=== PATIENT | female | born 1970 | race Two or more races ===

== ENCOUNTER 2023-01-21 11:13 | Inpatient (IN) | payer MEDICAID ==
[~2023-01-21] VITALS: Ht 172.7 cm; Wt 130.2 kg
[2023-01-21 12:05] LABS: Basophils # (auto) 0 10 ^3/uL (0-0.2); Basophils % (auto) 0.7 % (0.0-2.0); Eosinophils # (auto) 0.1 10 ^3/uL (0-0.8); Eosinophils % (auto) 1.9 % (0.0-7.0); Hematocrit 42.1 % (36.0-46.0); Hemoglobin 14.1 g/dL (12.2-16.2); Lymphocytes # (auto) 1.3 10 ^3/uL (0.4-5.4); Lymphocytes % (auto) 23.6 % (10.0-50.0); Mean Corpuscular Hemoglobin 28.8 pg (28.0-32.0); Mean Corpuscular Hgb Conc. 33.4 g/dL (32.0-36.0); Mean Corpuscular Volume 86.2 fL (80.0-100.0); Monocytes # (auto) 0.4 10 ^3/uL (0-1.3); Monocytes % (auto) 8.1 % (0.0-12.0); Neutrophils # (auto) 3.6 10 ^3/uL (1.6-8.6); Neutrophils % (auto) 65.7 % (37.0-80.0); Nucleated Red Blood Cells % 0.1 %; Red Blood Cells 4.89 10^6/uL (4.0-5.20); Red Cell Distribution Width 13.6 % (11.8-14.3); White Blood Cell 5.5 10^3/uL (4.4-10.8)
[2023-01-21 12:28] LABS: Albumin 3.5 g/dL (3.4-5.0); Calcium 8.9 mg/dL (8.5-10.1); Potassium 3.7 mmol/L (3.5-5.1)
[2023-01-21 12:31] LABS: BUN/Creatinine Ratio 14.5 (10.0-20.0); Bilirubin, Total 1.1 mg/dL (0.2-1.0); Total Protein 8.5 g/dL (6.4-8.2)
[2023-01-21] MEDS ORDERED: PIPERACILLIN-TAZOB 3.375GM 100 ML IV ONE (13:00)
[2023-01-21] MEDS ORDERED: VANCOMYCIN 1GM/250ML 250 ML IV ONE (13:00)
[2023-01-21] MEDS ORDERED: ACETAMINOPHEN 325 MG TAB PO PRN (14:00)
[2023-01-21] MEDS ORDERED: VANCOMYCIN PER PHARMACY 0 MG IV SCH (14:00)
[2023-01-21] MEDS ORDERED: LISI20TA56 PO (14:10)
[2023-01-21] MEDS ORDERED: DEXTROSE (50%) 50ML SYRG IV PRN (14:15)
[2023-01-21 15:01] LABS: Urine Bacteria NONE SEEN /hpf (None Seen); Urine Blood 1+ /uL (Negative); Urine Mucus FEW (None Seen); Urine Specific Gravity 1.023 (1.001-1.035); Urine WBC 1 /hpf (0 - 5)
[2023-01-21 15:13] LABS: Cholesterol 169 mg/dL (< 200); HDL Cholesterol 33 mg/dL (40-59); LDL Cholesterol 123 mg/dL (< 100); Triglycerides 124 mg/dL (< 150)
[2023-01-21 15:14] LABS: INR 1.06 (0.9-1.15); Partial Thromboplastin Time 30.2 SEC (24.5-34.5)
[2023-01-21] MEDS: LACTATED RINGER'S 1,000 ML IV SCH (17:31)
[2023-01-21] MEDS: ACCU-CHEK COMFORT CURVE STRIP VI SCH (18:00)
[2023-01-21] MEDS: InsuLIN REG 1unit/0.01ml Soln (100units/ml) SC SCH (18:00)
[2023-01-21] MEDS: AZTREONAM 1GM INJ 1 GM in D5W 5% 50 ML IV SCH ×2 (20:27→20:28)
[2023-01-21 21:24] VITALS: BP 126/76
[2023-01-21] MEDS ORDERED: MONT5CHW12 PO ×2 (22:52)
[2023-01-21] MEDS ORDERED: METF-370 PO (22:52)
[2023-01-21] MEDS ORDERED: HYDR-4902 PO (22:52)
[2023-01-22] MEDS: ACCU-CHEK COMFORT CURVE STRIP VI SCH ×4 (00:13→18:25)
[2023-01-22] MEDS: VANCOMYCIN 1GM/250ML 250 ML IV SCH ×3 (00:13→20:01)
[2023-01-22] MEDS: LACTATED RINGER'S 1,000 ML IV SCH ×2 (03:20→15:46)
[2023-01-22 04:30] VITALS: BP 107/61
[2023-01-22 05:55] LABS: Basophils # (auto) 0 10 ^3/uL (0-0.2); Basophils % (auto) 0.6 % (0.0-2.0); Eosinophils # (auto) 0.2 10 ^3/uL (0-0.8); Eosinophils % (auto) 4.2 % (0.0-7.0); Hematocrit 39.4 % (36.0-46.0); Hemoglobin 13.3 g/dL (12.2-16.2); Lymphocytes # (auto) 1.3 10 ^3/uL (0.4-5.4); Lymphocytes % (auto) 29.8 % (10.0-50.0); Mean Corpuscular Hemoglobin 29.1 pg (28.0-32.0); Mean Corpuscular Hgb Conc. 33.6 g/dL (32.0-36.0); Mean Corpuscular Volume 86.6 fL (80.0-100.0); Monocytes # (auto) 0.4 10 ^3/uL (0-1.3); Monocytes % (auto) 9.5 % (0.0-12.0); Neutrophils # (auto) 2.4 10 ^3/uL (1.6-8.6); Neutrophils % (auto) 55.9 % (37.0-80.0); Red Blood Cells 4.56 10^6/uL (4.0-5.20); Red Cell Distribution Width 13.7 % (11.8-14.3); White Blood Cell 4.4 10^3/uL (4.4-10.8)
[2023-01-22] MEDS: AZTREONAM 1GM INJ 1 GM in D5W 5% 50 ML IV SCH (06:00)
[2023-01-22] MEDS: InsuLIN REG 1unit/0.01ml Soln (100units/ml) SC SCH ×4 (06:00→18:00)
[2023-01-22 06:15] LABS: Calcium 8.6 mg/dL (8.5-10.1); Potassium 3.7 mmol/L (3.5-5.1)
[2023-01-22 06:17] LABS: BUN/Creatinine Ratio 16.2 (10.0-20.0)
[2023-01-22] MEDS ORDERED: HYDROmorphone HCL 2 MG/ML VL/or syr IV PRN ×2 (07:15)
[2023-01-22] MEDS ORDERED: METOCLOPRAMIDE HCL 5MG/ml INJ 2ml VIAL IV PRN (07:15)
[2023-01-22] MEDS ORDERED: ACCU-CHEK COMFORT CURVE STRIP VI ONE (07:15)
[2023-01-22] MEDS ORDERED: ROCURONIUM 10MG/ML 10ML VIAL IV ONE (07:16)
[2023-01-22] MEDS ORDERED: SUCCINYLCHOLINE CHLORIDE 20 MG/ML 10ML VIAL IV ONE (07:16)
[2023-01-22] MEDS ORDERED: GLYCOPYRROLATE 0.2 MG/ML 1ML VIAL ONE (07:19)
[2023-01-22] MEDS ORDERED: fentaNYL CITRATE 100 MCG/2 ML VL ONE (07:19)
[2023-01-22] MEDS ORDERED: PROPOFOL 10 MG/ML 20 ML IV ONE (07:19)
[2023-01-22] MEDS ORDERED: ONDANSETRON HCL 4 MG/2 ML VIAL ONE (07:19)
[2023-01-22] MEDS ORDERED: LIDOCAINE 2% JELLY 11ml (GLYDO) ONE (07:19)
[2023-01-22] MEDS ORDERED: KETAMINE HCL 10 ML ONE (07:19)
[2023-01-22] MEDS ORDERED: SODIUM CHLORIDE LOCK 10 ML ONE (07:19)
[2023-01-22] MEDS ORDERED: MIDAZOLAM HCL 2MG/2ML 2ml VIAL (1mg/ml) ONE (07:19)
[2023-01-22] MEDS ORDERED: NEOSTIGMINE 1 MG/ML INJ (10mg/10ML VIAL) ONE (07:19)
[2023-01-22] MEDS ORDERED: LIDOCAINE W/ EPINEPHRINE 1% 20ML VIAL ONE (07:20)
[2023-01-22] MEDS ORDERED: BUPIVACAINE 0.25% INJ 50ML VIAL ONE (07:20)
[2023-01-22] MEDS ORDERED: ETOMIDATE (2MG/ML) 20ML VIAL IV ONE (07:23)
[2023-01-22] MEDS: HYDROcodone-ACET 5/325MG TAB PO PRN ×2 (09:06→18:28)
[2023-01-22] MEDS: LISINOPRIL 20 MG TAB PO SCH (10:00)
[2023-01-22] MEDS: MORPHINE SULFATE INJ 2 MG/ml SYRG IV PRN ×2 (11:02→20:40)
[2023-01-22 12:00] VITALS: BP 117/69
[2023-01-22] MEDS: PIPERACILLIN-TAZOB 3.375GM 100 ML IV SCH ×2 (15:45→22:02)
[2023-01-22 16:00] VITALS: BP 108/62
[2023-01-22 22:00] VITALS: BP 113/62
[2023-01-23] MEDS: ACCU-CHEK COMFORT CURVE STRIP VI SCH ×5 (00:10→23:07)
[2023-01-23 05:00] VITALS: BP 113/63
[2023-01-23] MEDS: VANCOMYCIN 1GM/250ML 250 ML IV SCH ×2 (05:50→16:26)
[2023-01-23] MEDS: InsuLIN REG 1unit/0.01ml Soln (100units/ml) SC SCH ×5 (06:00→23:06)
[2023-01-23] MEDS: PIPERACILLIN-TAZOB 3.375GM 100 ML IV SCH ×3 (06:16→21:39)
[2023-01-23] MEDS: LACTATED RINGER'S 1,000 ML IV SCH ×2 (06:17→19:20)
[2023-01-23] MEDS: HYDROcodone-ACET 5/325MG TAB PO PRN (08:35)
[2023-01-23 09:00] VITALS: BP 131/77
[2023-01-23] MEDS: LISINOPRIL 20 MG TAB PO SCH (09:54)
[2023-01-23] MEDS: MORPHINE SULFATE INJ 2 MG/ml SYRG IV PRN (13:51)
[2023-01-23 17:00] VITALS: BP 127/74
[2023-01-23 22:00] VITALS: BP 117/65
[2023-01-24] MEDS: VANCOMYCIN 1GM/250ML 250 ML IV SCH ×2 (01:53→12:54)
[2023-01-24 05:00] VITALS: BP 120/51
[2023-01-24] MEDS: InsuLIN REG 1unit/0.01ml Soln (100units/ml) SC SCH ×3 (05:45→17:51)
[2023-01-24] MEDS: PIPERACILLIN-TAZOB 3.375GM 100 ML IV SCH ×2 (05:45→13:57)
[2023-01-24] MEDS: ACCU-CHEK COMFORT CURVE STRIP VI SCH ×3 (05:45→17:51)
[2023-01-24] MEDS: HYDROcodone-ACET 5/325MG TAB PO PRN (06:03)
[2023-01-24] MEDS: LACTATED RINGER'S 1,000 ML IV SCH (08:40)
[2023-01-24 09:00] VITALS: BP 123/64
[2023-01-24] MEDS: LISINOPRIL 20 MG TAB PO SCH (09:53)
[2023-01-24] MEDS ORDERED: LEVO500T91 PO (10:53)
[2023-01-24] MEDS ORDERED: AUG875T PO (10:53)
[2023-01-24] MEDS ORDERED: HYDR-4902 PO (10:53)
[2023-01-24 13:00] VITALS: BP 118/73
[2023-01-24] MEDS: MORPHINE SULFATE INJ 2 MG/ml SYRG IV PRN (16:16)
[2023-01-24 17:26] VITALS: BP 98/64
== END 2023-01-24 19:50 | disposition home health service (06) | DRG 364 ==
LOC: ER 11:13 → OVERFLOW 14:06 → CENTRAL 21:32
PROVIDERS: ADMIT Registered Nurse; ATTEND Internal Medicine
PROC: 0W9F0ZZ Drainage of Abdominal Wall, Open Approach (ICD-10-PCS; principal; 2023-01-22 07:26)
DX: S30.1XXA Contusion of abdominal wall, initial encounter (principal); L03.311 Cellulitis of abdominal wall; E11.9 Type 2 diabetes mellitus without complications; E78.5 Hyperlipidemia, unspecified; I10 Essential (primary) hypertension; W18.39XA Other fall on same level, initial encounter; E66.9 Obesity, unspecified; Z88.8 Allergy status to other drugs, medicaments and biological substances; Z90.49 Acquired absence of other specified parts of digestive tract; Z68.41 Body mass index [BMI] 40.0-44.9, adult; Y93.89 Activity, other specified; Y92.89 Other specified places as the place of occurrence of the external cause; Y99.8 Other external cause status
CPT/HCPCS: 36415; 71045; 74177; 80048; 80053; 80061; 80202; 81001; 82962; 83036; 83605; 84443; 84702; 85025; 85610; 85730; 87040; 87070; 87075; 87076; 87077; 87186; 87205; 96365; 96366; 96367; G0378; J0330; J1815; J2250; J2405; J2543; J2704; J3490; J7060

== ENCOUNTER 2023-06-26 10:33 | Inpatient (IN) | payer MEDICAID ==
[~2023-06-26] VITALS: Ht 172.7 cm; Wt 115.0 kg
[~2023-06-26 10:33] MED LIST: AUG875T PO; HYDR-4902 PO; LEVO500T91 PO; LISI20TA56 PO; METF-370 PO; MONT5CHW12 PO
[2023-06-26] MEDS ORDERED: DEXTROSE (50%) 50ML SYRG IV PRN (12:00)
[2023-06-26] MEDS ORDERED: VANCOMYCIN PER PHARMACY 0 MG IV SCH (12:00)
[2023-06-26] MEDS ORDERED: ONDANSETRON HCL 4 MG/2 ML VIAL IV PRN (12:00)
[2023-06-26] MEDS ORDERED: ACETAMINOPHEN 500 MG TAB PO PRN (12:00)
[2023-06-26 12:56] LABS: Basophils # (auto) 0 10 ^3/uL (0-0.2); Basophils % (auto) 0.3 % (0.0-2.0); Eosinophils # (auto) 0 10 ^3/uL (0-0.8); Eosinophils % (auto) 0.3 % (0.0-7.0); Hematocrit 38.8 % (36.0-46.0); Hemoglobin 12.8 g/dL (12.2-16.2); Lymphocytes # (auto) 0.7 10 ^3/uL (0.4-5.4); Lymphocytes % (auto) 10.1 % (10.0-50.0); Mean Corpuscular Volume 84.9 fL (80.0-100.0); Monocytes # (auto) 0.5 10 ^3/uL (0-1.3); Monocytes % (auto) 6.7 % (0.0-12.0); Neutrophils % (auto) 82.6 % (37.0-80.0); Red Blood Cells 4.57 10^6/uL (4.0-5.20); Red Cell Distribution Width 14.3 % (11.8-14.3); White Blood Cell 7.3 10^3/uL (4.4-10.8)
[2023-06-26 13:00] VITALS: BP 123/67; PULSE 95; RESP 18; TEMP 98.2; O2SAT 94
[2023-06-26 13:05] VITALS: BP 110/62; PULSE 79; PULSE 95; RESP 16; RESP 18; TEMP 98.6; O2SAT 98
[2023-06-26 13:22] LABS: INR 1.11 (0.9-1.15); Prothrombin Time 11.6 sec (9.3-11.8)
[2023-06-26 13:31] LABS: Alanine Aminotransferase 24 U/L (7-40); Albumin 4.4 g/dL (3.2-4.8); Alkaline Phosphatase 105 U/L (46-116); Anion Gap 6 (5-15); Aspartate Aminotransferase 20 U/L (13-40); BUN/Creatinine Ratio 12.6 (10.0-20.0); Blood Urea Nitrogen 11 mg/dL (9-23); Calcium 9.5 mg/dL (8.5-10.1); Carbon Dioxide 26 mmol/L (20-30); Chloride 105 mmol/L (98-107); Glucose 86 mg/dL (74-106); Potassium 3.9 mmol/L (3.5-5.1); Sodium 137 mmol/L (136-145)
[2023-06-26 13:32] LABS: Bilirubin, Total 0.9 mg/dL (0.2-1.0); Total Protein 7.8 g/dL (5.7-8.2)
[2023-06-26] MEDS ORDERED: metroNIDAZOLE 500MG/100ML 100 ML IV SCH (14:00)
[2023-06-26] MEDS ORDERED: levoFLOXacin 500MG 100 ML IV SCH (14:07)
[2023-06-26] MEDS ORDERED: VANCOMYCIN 1GM/250ML 250 ML IV ONE (15:15)
[2023-06-26] MEDS ORDERED: VANCOMYCIN 1GM/250ML 250 ML IV SCH (16:00)
[2023-06-26] MEDS ORDERED: OMNIPAQUE 12mg/ml 500ml ORAL SOLUTION PO ONE (16:27)
[2023-06-26 17:00] VITALS: BP 129/78; PULSE 101; RESP 20; TEMP 99.4; O2SAT 96
[2023-06-26] MEDS: InsuLIN REG 1unit/0.01ml Soln (100units/ml) SC SCH ×2 (17:00→22:00)
[2023-06-26] MEDS: SODIUM CHLORIDE 0.9% 1,000 ML IV SCH ×2 (17:18→22:35)
[2023-06-26] MEDS: levoFLOXacin 500MG 100 ML IV SCH (17:18)
[2023-06-26] MEDS: ACCU-CHEK COMFORT CURVE STRIP VI SCH ×2 (17:22→22:19)
[2023-06-26] MEDS ORDERED: IOHEXOL 300 MG/ML 100ML BOTTLE IJ ONE (18:00)
[2023-06-26 20:00] VITALS: PULSE 107; RESP 18; O2SAT 100
[2023-06-26] MEDS: metroNIDAZOLE 500MG/100ML 100 ML IV SCH (20:01)
[2023-06-26] MEDS: VANCOMYCIN 1GM/250ML 250 ML IV SCH (22:26)
[2023-06-26 22:34] VITALS: BP 110/70; PULSE 107; RESP 18; TEMP 99.3; O2SAT 100
[2023-06-27] VITALS (7 sets, daily range): BP systolic 96–108; BP diastolic 42–64; PULSE 65–103; RESP 16–18; TEMP 97.2–99.4; O2SAT 95–98
[2023-06-27] MEDS: metroNIDAZOLE 500MG/100ML 100 ML IV SCH ×3 (03:20→18:13)
[2023-06-27 04:52] LABS: Urine Bacteria NONE SEEN /hpf (None Seen); Urine Blood TRACE /uL (Negative); Urine Clarity Clear (Clear); Urine Color Yellow (Yellow); Urine Protein, UAD Negative (Negative); Urine Specific Gravity 1.024 (1.001-1.035); Urine Urobilinogen Normal (Negative); Urine WBC 6 /hpf (0 - 5)
[2023-06-27 06:39] LABS: Basophils # (auto) 0 10 ^3/uL (0-0.2); Basophils % (auto) 0.3 % (0.0-2.0); Eosinophils # (auto) 0 10 ^3/uL (0-0.8); Eosinophils % (auto) 0.1 % (0.0-7.0); Hematocrit 34.3 % (36.0-46.0); Hemoglobin 11.4 g/dL (12.2-16.2); Lymphocytes # (auto) 0.8 10 ^3/uL (0.4-5.4); Lymphocytes % (auto) 10.6 % (10.0-50.0); Mean Corpuscular Hemoglobin 28.5 pg (28.0-32.0); Mean Corpuscular Hgb Conc. 33.3 g/dL (32.0-36.0); Mean Corpuscular Volume 85.7 fL (80.0-100.0); Monocytes # (auto) 0.5 10 ^3/uL (0-1.3); Monocytes % (auto) 6.8 % (0.0-12.0); Neutrophils # (auto) 6.4 10 ^3/uL (1.6-8.6); Neutrophils % (auto) 82.2 % (37.0-80.0); Red Cell Distribution Width 14.2 % (11.8-14.3); White Blood Cell 7.7 10^3/uL (4.4-10.8)
[2023-06-27 06:50] LABS: Calcium 8.7 mg/dL (8.7-10.4); Chloride 105 mmol/L (98-107); Potassium 3.5 mmol/L (3.5-5.1); Sodium 136 mmol/L (136-145)
[2023-06-27 06:51] LABS: Anion Gap 10 (5-15); Carbon Dioxide 21 mmol/L (20-30)
[2023-06-27 06:56] LABS: Blood Urea Nitrogen 10 mg/dL (9-23); Glucose 111 mg/dL (74-106)
[2023-06-27] MEDS: ACCU-CHEK COMFORT CURVE STRIP VI SCH ×4 (06:57→23:14)
[2023-06-27] MEDS: InsuLIN REG 1unit/0.01ml Soln (100units/ml) SC SCH ×4 (06:57→23:06)
[2023-06-27] MEDS ORDERED: MEPERIDINE HCL (25 MG/ML) 1ML VIAL IV PRN (08:30)
[2023-06-27] MEDS ORDERED: ONDANSETRON HCL 4 MG/2 ML VIAL IV PRN (08:30)
[2023-06-27] MEDS ORDERED: fentaNYL CITRATE 100 MCG/2 ML VL ONE (08:31)
[2023-06-27] MEDS ORDERED: levoFLOXacin 500MG 100 ML IV ONE (09:00)
[2023-06-27] MEDS ORDERED: PROPOFOL 10 MG/ML 20 ML IV ONE (09:14)
[2023-06-27] MEDS ORDERED: MEPERIDINE HCL (25 MG/ML) 1ML VIAL ONE ×2 (09:16→09:23)
[2023-06-27] MEDS ORDERED: DexAMETHasone SOD PHOS 10MG/1ML VIAL INJ ONE (09:17)
[2023-06-27] MEDS ORDERED: ONDANSETRON HCL 4 MG/2 ML VIAL ONE (09:17)
[2023-06-27] MEDS ORDERED: ceFAZolin 1GM VL ONE (09:34)
[2023-06-27] MEDS ORDERED: ePHEDrine SULFATE 50 MG/ML AMP ONE (09:40)
[2023-06-27] MEDS: HYDROmorphone HCL 2 MG/ML VL/or syr IV PRN ×2 (10:14→10:35)
[2023-06-27] MEDS: PANTOPRAZOLE 40 MG TAB PO SCH (11:18)
[2023-06-27] MEDS: VANCOMYCIN 1GM/250ML 250 ML IV SCH ×2 (11:18→21:24)
[2023-06-27] MEDS: SODIUM CHLORIDE 0.9% 1,000 ML IV SCH ×2 (11:18→18:00)
[2023-06-27] MEDS: MORPHINE SULFATE INJ 2 MG/ml SYRG IV PRN ×2 (15:59→23:14)
[2023-06-27] MEDS: levoFLOXacin 500MG 100 ML IV SCH (17:02)
[2023-06-27] MEDS: HYDROcodone-ACET 5/325MG TAB PO PRN (18:14)
[2023-06-28] MEDS: metroNIDAZOLE 500MG/100ML 100 ML IV SCH ×3 (04:39→19:27)
[2023-06-28] MEDS: SODIUM CHLORIDE 0.9% 1,000 ML IV SCH ×3 (04:39→23:41)
[2023-06-28 05:00] VITALS: BP 113/66; PULSE 66; RESP 17; TEMP 97.6; O2SAT 96
[2023-06-28] MEDS: InsuLIN REG 1unit/0.01ml Soln (100units/ml) SC SCH ×4 (06:26→21:48)
[2023-06-28] MEDS: VANCOMYCIN 1GM/250ML 250 ML IV SCH ×2 (06:27→16:58)
[2023-06-28] MEDS: MORPHINE SULFATE INJ 2 MG/ml SYRG IV PRN ×3 (06:40→18:25)
[2023-06-28] MEDS: ACCU-CHEK COMFORT CURVE STRIP VI SCH ×4 (06:41→21:46)
[2023-06-28 09:00] VITALS: BP 104/66; PULSE 66; RESP 18; TEMP 97.4; O2SAT 95
[2023-06-28] MEDS: PANTOPRAZOLE 40 MG TAB PO SCH (09:19)
[2023-06-28] MEDS: HYDROcodone-ACET 5/325MG TAB PO PRN ×2 (09:19→15:47)
[2023-06-28 13:00] VITALS: BP 110/60; PULSE 59; RESP 20; TEMP 97.5; O2SAT 98
[2023-06-28] MEDS: levoFLOXacin 500MG 100 ML IV SCH (15:47)
[2023-06-28 17:00] VITALS: BP 110/50; PULSE 59; RESP 18; TEMP 97.5; O2SAT 100
[2023-06-28] MEDS: DOCUSATE SOD 100 MG CAP PO SCH (21:46)
[2023-06-28 22:00] VITALS: BP 112/70; PULSE 61; RESP 17; TEMP 97.8; O2SAT 97
[2023-06-29] MEDS: metroNIDAZOLE 500MG/100ML 100 ML IV SCH ×3 (01:46→18:08)
[2023-06-29] MEDS: VANCOMYCIN 1GM/250ML 250 ML IV SCH ×3 (03:19→23:15)
[2023-06-29] MEDS: MORPHINE SULFATE INJ 2 MG/ml SYRG IV PRN ×4 (04:10→21:38)
[2023-06-29 04:58] VITALS: BP 104/56; PULSE 61; RESP 16; TEMP 97.8; O2SAT 98
[2023-06-29] MEDS: InsuLIN REG 1unit/0.01ml Soln (100units/ml) SC SCH ×4 (06:47→21:19)
[2023-06-29] MEDS: ACCU-CHEK COMFORT CURVE STRIP VI SCH ×4 (06:47→21:19)
[2023-06-29 08:00] VITALS: BP 110/76; PULSE 72; RESP 14; TEMP 97.6; O2SAT 97
[2023-06-29 09:01] VITALS: BP 110/76; PULSE 72; RESP 14; TEMP 97.6; O2SAT 97
[2023-06-29] MEDS: PANTOPRAZOLE 40 MG TAB PO SCH (09:40)
[2023-06-29] MEDS: DOCUSATE SOD 100 MG CAP PO SCH ×2 (09:40→21:19)
[2023-06-29] MEDS: SODIUM CHLORIDE 0.9% 1,000 ML IV SCH ×2 (09:40→20:33)
[2023-06-29 13:00] VITALS: BP 118/74; PULSE 66; RESP 14; TEMP 97.8; O2SAT 97
[2023-06-29] MEDS: levoFLOXacin 500MG 100 ML IV SCH (16:44)
[2023-06-29] MEDS: HYDROcodone-ACET 5/325MG TAB PO PRN (16:44)
[2023-06-29 17:00] VITALS: BP 115/72; PULSE 69; RESP 14; TEMP 98.5; O2SAT 97
[2023-06-29 22:00] VITALS: BP 99/63; PULSE 68; RESP 17; TEMP 97.9; O2SAT 95
[2023-06-30] MEDS: metroNIDAZOLE 500MG/100ML 100 ML IV SCH ×2 (02:18→09:43)
[2023-06-30 04:59] VITALS: BP 137/74; PULSE 60; RESP 18; TEMP 98; O2SAT 97
[2023-06-30] MEDS: MORPHINE SULFATE INJ 2 MG/ml SYRG IV PRN ×2 (05:23→13:12)
[2023-06-30] MEDS: SODIUM CHLORIDE 0.9% 1,000 ML IV SCH ×2 (06:38→16:00)
[2023-06-30] MEDS: InsuLIN REG 1unit/0.01ml Soln (100units/ml) SC SCH ×3 (06:38→17:00)
[2023-06-30] MEDS: ACCU-CHEK COMFORT CURVE STRIP VI SCH ×3 (06:38→17:02)
[2023-06-30 08:00] VITALS: BP 130/67; PULSE 72; RESP 17; TEMP 97.6; O2SAT 98
[2023-06-30] MEDS: PANTOPRAZOLE 40 MG TAB PO SCH (08:44)
[2023-06-30] MEDS: HYDROcodone-ACET 5/325MG TAB PO PRN (08:44)
[2023-06-30] MEDS: VANCOMYCIN 1GM/250ML 250 ML IV SCH (08:45)
[2023-06-30] MEDS: DOCUSATE SOD 100 MG CAP PO SCH (08:45)
[2023-06-30 08:53] VITALS: BP 130/67; PULSE 72; RESP 17; TEMP 97.6; O2SAT 98
[2023-06-30] MEDS ORDERED: DAPTOmycin 0 MG in SODIUM CHL 0.9% 50 ML IV SCH (10:00)
[2023-06-30 10:17] LABS: Basophils # (auto) 0 10 ^3/uL (0-0.2); Basophils % (auto) 0.6 % (0.0-2.0); Eosinophils # (auto) 0.1 10 ^3/uL (0-0.8); Eosinophils % (auto) 1.9 % (0.0-7.0); Hematocrit 37.3 % (36.0-46.0); Hemoglobin 12.3 g/dL (12.2-16.2); Lymphocytes # (auto) 1.1 10 ^3/uL (0.4-5.4); Lymphocytes % (auto) 21.7 % (10.0-50.0); Mean Corpuscular Hemoglobin 27.9 pg (28.0-32.0); Mean Corpuscular Hgb Conc. 32.9 g/dL (32.0-36.0); Mean Corpuscular Volume 84.6 fL (80.0-100.0); Monocytes # (auto) 0.2 10 ^3/uL (0-1.3); Monocytes % (auto) 4.7 % (0.0-12.0); Neutrophils # (auto) 3.6 10 ^3/uL (1.6-8.6); Neutrophils % (auto) 71.1 % (37.0-80.0); Nucleated Red Blood Cells % 0.1 %; Red Cell Distribution Width 14.1 % (11.8-14.3); White Blood Cell 5.1 10^3/uL (4.4-10.8)
[2023-06-30 10:24] LABS: Chloride 105 mmol/L (98-107); Potassium 4.2 mmol/L (3.5-5.1); Sodium 139 mmol/L (136-145)
[2023-06-30 10:25] LABS: Anion Gap 7 (5-15); Calcium 9.2 mg/dL (8.5-10.1); Carbon Dioxide 27 mmol/L (20-30)
[2023-06-30 10:30] LABS: BUN/Creatinine Ratio 11.9 (10.0-20.0); Blood Urea Nitrogen 10 mg/dL (9-23); Glucose 135 mg/dL (74-106)
[2023-06-30] MEDS: AMPICILLIN & SULBACTAM SODIUM 3 GM in SODIUM CHL 0.9% 100 ML IV SCH ×2 (10:59→17:00)
[2023-06-30 12:33] VITALS: BP 128/78; PULSE 64; RESP 17; TEMP 98.1; O2SAT 98
[2023-06-30 16:32] VITALS: BP 128/78; PULSE 64; RESP 17; TEMP 98.1; O2SAT 98
[2023-06-30 16:43] VITALS: BP 128/79; PULSE 72; RESP 17; TEMP 98.1; O2SAT 96
== END 2023-06-30 18:33 | disposition home health service (06) | DRG 710 ==
LOC: UNDOADMIN 10:33 → CENTRAL 10:33
PROVIDERS: ADMIT Nurse Practitioner Acute Care; ATTEND Internal Medicine
PROC: 0W9F0ZZ Drainage of Abdominal Wall, Open Approach (ICD-10-PCS; principal; 2023-06-27 09:06)
PROC: 05HC33Z Insertion of Infusion Device into Left Basilic Vein, Percutaneous Approach (ICD-10-PCS; 2023-06-30)
PROC: B54NZZA Ultrasonography of Left Upper Extremity Veins, Guidance (ICD-10-PCS; 2023-06-30)
DX: A41.9 Sepsis, unspecified organism (principal); L02.211 Cutaneous abscess of abdominal wall; E11.9 Type 2 diabetes mellitus without complications; G89.4 Chronic pain syndrome; M19.90 Unspecified osteoarthritis, unspecified site; Z88.1 Allergy status to other antibiotic agents; Z88.6 Allergy status to analgesic agent; Z88.8 Allergy status to other drugs, medicaments and biological substances
CPT/HCPCS: 36415; 71045; 74177; 80048; 80053; 80202; 81001; 82962; 83036; 83605; 84702; 85025; 85610; 85730; 87040; 87070; 87075; 87076; 87077; 87186; 87205; 93005; G0378; J0690; J1100; J1815; J1956; J2405; J2704; J3490